=== PATIENT | male | born 1985 | race Caucasian/White ===

== ENCOUNTER 2023-08-09 11:10 | Emergency (ER) | payer OTHER, SELFPAY ==
[2023-08-09] MEDS ORDERED: Bupivacaine PF 0.5% 30 ML VIAL ONE (11:22)
[2023-08-09] MEDS ORDERED: Boostrix 0.5 ML (Tdap) VIAL (>/=7 yrs of age) ONE (11:49)
[2023-08-09] MEDS ORDERED: Bacitracin 1 PK ONE (12:24)
== END 2023-08-09 12:32 | disposition home or self-care (01) ==
LOC: CSHERS 11:10
DX: S68.623A Partial traumatic transphalangeal amputation of left middle finger, initial encounter (principal); Z23 Encounter for immunization; W31.2XXA Contact with powered woodworking and forming machines, initial encounter
CPT/HCPCS: 90471; 90715; S0020